=== PATIENT | female | born 1975 | race Caucasian/White ===

== ENCOUNTER → 2016-12-05 | Outpatient (CLI) | payer OTHER ==
[2016-09-22 13:50] VITALS: BP 112/51
[~2016-12-05] MED LIST: ALBU8.5H6 INH; AZIT500T PO; BENZ100C PO; BUTA1CAP29 PO; DESV50TA PO; EPIN0.3A8 IJ; FLUT9.9S NS; LORA2TAB PO; NICO1PAT TP; OXCA300T PO; TOPI50TA4 PO; VARE1TAB5 PO; ZALE10CA16 PO
--- NOTE | 2016-12-05 09:04 | RAD ---
INDICATION: CHRONIC SINUSITIS X 2 MONTHS COMPARISON: 11/28/2014 TECHNIQUE: Axial CT images were obtained through the facial region without contrast. FINDINGS: Lucency in the left mandibular condyle. Zygomatic arches are intact. Mastoid air cells are well aerated. Maxillary sinuses well aerated. Sphenoid sinus and ethmoid air cells well aerated. Frontal sinus well aerated. There is nasal septal bowing to the right. IMPRESSION: No opacification of the sinuses to suggest sinusitis. Nasal septal bowing to the right. There is a linear lucency at the left mandibular condyle. This is likely secondary to artifact or a vascular channel unless the patient has had trauma to the region to suggest nondisplaced fracture. PQRS Compliance Statement: One or more of the following individualized dose reduction techniques were utilized for this examination: 1. Automated exposure control 2. Adjustment of the mA and/or kV according to patient size 3. Use of iterative reconstruction technique
== END | disposition home or self-care (01) ==
LOC: CT 07:41
PROVIDERS: ATTEND Otolaryngology
DX: J32.9 Chronic sinusitis, unspecified (principal)
CPT/HCPCS: 70486

== ENCOUNTER 2019-06-18 09:08 | Emergency (ER) | payer OTHER ==
[~2019-06-18] VITALS: Ht 165.1 cm; Wt 182.8 kg
[~2019-06-18 09:08] MED LIST changes: -OXCA300T PO; +OXCA300T19 PO; -TOPI50TA4 PO; +TOPI50TA8 PO; -ZALE10CA16 PO; +ZALE10CA44 PO
[2019-06-18 10:01] LABS: BASO # 0.1 x10^3/uL (0.0-0.2); BASO % 1 % (0-3); EOS # 0.2 x10^3/uL (0.0-0.7); EOS % 3 % (0-3); HEMATOCRIT 34.4 % (36.0-47.0); HEMOGLOBIN 11.4 g/dL (12.0-15.5); LYMPH # 1.9 x10^3/uL (1.0-4.8); LYMPH % 23 % (24-48); MEAN CORPUSCULAR HEMOGLOBIN 29 pg (25-35); MEAN CORPUSCULAR HGB CONC 33 g/dL (31-37); MEAN CORPUSCULAR VOLUME 87 fL (79-100); MONO # 0.6 x10^3/uL (0.0-1.1); MONO % 8 % (0-9); NEUT # 5.4 x10^3/uL (1.8-7.7); NEUT % 66 % (31-73); PLATELET COUNT 282 x10^3/uL (140-400); RED BLOOD COUNT 3.93 x10^6/uL (3.50-5.40); RED CELL DISTRIBUTION WIDTH 13.6 % (11.5-14.5); WHITE BLOOD COUNT 8.3 x10^3/uL (4.0-11.0)
--- NOTE | 2019-06-18 10:05 | EKG ---
[facility] [address] [place] [address] Test Date: 2019-06-18 Test Time: 09:16:18 Pat Name: JUDIE AGUIRRE Department: Room: Gender: F [employer] Machine Operator: : 1975 Requested By: SUSANA MORRIS Order Number: [id number] Reading MD: Nick Bradley MD Measurements Intervals [place] Rate: 93 P: 45 MI: 166 QRS: 17 QRSD: 86 T: 12 QT: 364 QTc: 455 Interpretive Statements SINUS RHYTHM Electronically Signed On 06-18-2019 18:51:50 CDT by Nick Bradley MD
[2019-06-18 10:09] LABS: PROTHROMBIN TIME PATIENT 12.3 SEC (11.7-14.0)
[2019-06-18] MEDS ORDERED: fentaNYL PF VIAL 100 MCG/2 ML VIAL IV ONE (10:15)
--- NOTE | 2019-06-18 10:15 | RAD ---
PORTABLE CHEST 1V History: Chest pain Comparison: April 10, 2015 Findings: Low lung volumes with patchy central and bibasilar opacities. Portable technique accentuates cardiac size. No definite pleural effusion. Impression: 1. Low lung volumes with patchy central and bibasilar opacities, may represent atelectasis or consolidations. PA and lateral view the chest can better assess if clinically indicated. Electronically signed by: Alistair Naylro DO (06/18/2019 10:12 AM) [facility]
[2019-06-18] MEDS ORDERED: HYDROmorphone 2 MG/ML VIAL IV ONE (11:15)
[2019-06-18 11:21] LABS: CALCIUM 9.2 mg/dL (8.5-10.1); CREATININE 0.7 mg/dL (0.6-1.0); GFR 91.8; POTASSIUM 4.2 mmol/L (3.5-5.1)
[2019-06-18 11:27] LABS: ALBUMIN 3.5 g/dL (3.4-5.0); ALBUMIN/GLOBULIN RATIO 0.9 (1.0-1.7); MAGNESIUM 1.9 mg/dL (1.8-2.4); TOTAL BILIRUBIN 0.3 mg/dL (0.2-1.0); TOTAL PROTEIN 7.3 g/dL (6.4-8.2)
--- NOTE | 2019-06-18 11:30 | PHYS DOC ---
Past Medical History Past Medical History: Anxiety, Depression, Hypertension, Stroke Past Surgical History: Appendectomy, Cholecystectomy, , Hysterectomy, Other Additional Past Surgical Histo: Lap Band Alcohol Use: None Drug Use: None Adult General Chief Complaint Chief Complaint: WEAKNESS/GENERALIZED HPI HPI Patient is a 43 year old female who presents by EMS with complaining of weakn ess. Patient states she has had history of migraine headache and for the last several days has generalized headache that did not get better with pain medication. Patient complaining of right upper extremity weakness and numbness since yesterday with right eye blurred vision did not get better today. Patient also complaining of chest pain in substernal area and bilateral chest that started today as an intermittent pain. Patient has multiple complaint any states she started a new job today. Review of Systems Review of Systems Constitutional: Denies fever or chills [] Eyes: Denies redness, or eye pain, reports change of vision [] HENT: Denies nasal congestion or sore throat [] Respiratory: Denies cough or shortness of breath [] Cardiovascular: No additional information not addressed in HPI [] GI: Denies abdominal pain, nausea, vomiting, bloody stools or diarrhea [] : Denies dysuria or hematuria [] Musculoskeletal: Denies back pain or joint pain [] Integument: Denies rash or skin lesions [] Neurologic: Ports headache, focal weakness, sensory loss Endocrine: Denies polyuria or polydipsia [] All other systems were reviewed and found to be within normal limits, except as documented in this note. Current Medications Current Medications Current Medications Medications (Trade) Dose Ordered Sig/[facility] Start Time Stop Time Status Last Admin Dose Admin Fentanyl Citrate (Fentanyl 2ml Vial) 50 mcg 1X ONCE 06/18/19 10:15 06/18/19 10:16 DC 06/18/19 09:50 50 MCG Hydromorphone HCl (Dilaudid) 1 mg 1X ONCE 06/18/19 11:15 06/18/19 11:16 DC 06/18/19 10:58 1 MG Allergies Allergies Allergies Coded Allergies Type Severity Reaction Last Updated Verified buckwheat Allergy Severe Anaphylaxis 09/22/16 No Physical Exam Physical Exam Constitutional: Well nourished, mild distress, non-toxic appearance, morbidly obese. [] HENT: Normocephalic, atraumatic. Eyes: PERRLA, EOMI, conjunctiva normal, no discharge. [] Neck: Normal range of motion, no tenderness, supple, no stridor. [] Cardiovascular:Heart rate regular rhythm, no murmur [] Lungs & Thorax: Bilateral breath sounds clear to auscultation [] Abdomen: Bowel sounds normal, soft, no tenderness, no masses, no pulsatile masses. [] Skin: Warm, dry, no erythema, no rash. [] Back: No tenderness, no CVA tenderness. [] Extremities: No tenderness, no cyanosis, no clubbing, Neurologic: Alert and oriented X 3, NIH-7, SGOT this number was not accurate number and patient intentionally refuses to move her extremity Psychologic: anxious Current Patient Data Vital Signs Vital Signs Date Time Temp Pulse Resp B/P (MAP) Pulse Ox O2 Delivery O2 Flow Rate FiO2 06/18/19 12:29 16 95 Room Air 06/18/19 12:10 83 06/18/19 09:12 98.3 136/74 (94) 98.3 Lab Values Laboratory Tests Test 06/18/19 09:40 06/18/19 11:00 White Blood Count 8.3 x10^3/uL (4.0-11.0) Red Blood Count 3.93 x10^6/uL (3.50-5.40) Hemoglobin 11.4 g/dL (12.0-15.5) L Hematocrit 34.4 % (36.0-47.0) L Mean Corpuscular Volume 87 fL (79-100) Mean Corpuscular Hemoglobin 29 pg (25-35) Mean Corpuscular Hemoglobin Concent 33 g/dL (31-37) Red Cell Distribution Width 13.6 % (11.5-14.5) Platelet Count 282 x10^3/uL (140-400) Neutrophils (%) (Auto) 66 % (31-73) Lymphocytes (%) (Auto) 23 % (24-48) L Monocytes (%) (Auto) 8 % (0-9) Eosinophils (%) (Auto) 3 % (0-3) Basophils (%) (Auto) 1 % (0-3) Neutrophils # (Auto) 5.4 x10^3/uL (1.8-7.7) Lymphocytes # (Auto) 1.9 x10^3/uL (1.0-4.8) Monocytes # (Auto) 0.6 x10^3/uL (0.0-1.1) Eosinophils # (Auto) 0.2 x10^3/uL (0.0-0.7) Basophils # (Auto) 0.1 x10^3/uL (0.0-0.2) Prothrombin Time 12.3 SEC (11.7-14.0) Prothrombin Time INR 0.9 (0.8-1.1) Sodium Level 139 mmol/L (136-145) Potassium Level 4.2 mmol/L (3.5-5.1) Chloride Level 102 mmol/L (98-107) Carbon Dioxide Level 28 mmol/L (21-32) Anion Gap 9 (6-14) Blood Urea Nitrogen 9 mg/dL (7-20) Creatinine 0.7 mg/dL (0.6-1.0) Estimated GFR (Cockcroft-Gault) 91.8 BUN/Creatinine Ratio 13 (6-20) Glucose Level 92 mg/dL (70-99) Calcium Level 9.2 mg/dL (8.5-10.1) Magnesium Level 1.9 mg/dL (1.8-2.4) Total Bilirubin 0.3 mg/dL (0.2-1.0) Aspartate Amino Transferase (AST) 24 U/L (15-37) Alanine Aminotransferase (ALT) 45 U/L (14-59) Alkaline Phosphatase 110 U/L (46-116) Creatine Kinase 41 U/L (26-192) Troponin I Quantitative < 0.017 ng/mL (0.000-0.055) BX-Nrp-Q-Type Natriuretic Peptide 29 pg/mL (0-124) Total Protein 7.3 g/dL (6.4-8.2) Albumin 3.5 g/dL (3.4-5.0) Albumin/Globulin Ratio 0.9 (1.0-1.7) L Lipase 72 U/L (73-393) L Laboratory Tests 06/18/19 09:40 Laboratory Tests 06/18/19 11:00 EKG EKG EKG interpreted by me. EKG at 0 916 showed normal sinus rhythm at rate of 92, normal AR and QT intervals, no acute ST-T wave abnormalities. Radiology/Procedures Radiology/Procedures [][facility] [address] [facility] [place] [address] IMAGING REPORT Signed PATIENT: JUDIE AGUIRRE ACCOUNT: [id number] : 1975 LOCATION: ER AGE: 43 SEX: F EXAM STATUS: REG ER ORD. PHYSICIAN: SUSANA MORRIS MD REASON: chest pain PROCEDURE: PORTABLE CHEST 1V PORTABLE CHEST 1V History: Chest pain Comparison: April 10, 2015 Findings: Low lung volumes with patchy central and bibasilar opacities. Portable technique accentuates cardiac size. No definite pleural effusion. Impression: 1. Low lung volumes with patchy central and bibasilar opacities, may represent atelectasis or consolidations. PA and lateral view the chest can better assess if clinically indicated. Electronically signed by: Alistair Naylor DO (06/18/2019 10:12 AM) [facility] DICTATED and SIGNED BY: ALISTAIR NAYLOR DO DATE: 06/18/19 1012 [facility] [address] [place] [address] IMAGING REPORT Signed PATIENT: JUDIE AGUIRRE ACCOUNT: [id number] : 1975 LOCATION: ER AGE: 43 SEX: F EXAM STATUS: REG ER ORD. PHYSICIAN: SUSANA MORRIS MD REASON: chest pain and arm weakness PROCEDURE: CT HEAD WO CONTRAST EXAM: Head CT without contrast. HISTORY: Chest pain. Arm weakness. TECHNIQUE: Computed tomographic images of the head were obtained without contrast. COMPARISON: MRI dated 11/25/2014. FINDINGS: There is no acute or subacute extra-axial or intraparenchymal hemorrhage. There is no mass effect or midline shift. There is no hydrocephalus. The garcia-white matter differentiation pattern is intact. There is a stable prominent sella, better characterized on the prior MRI. The visualized portions of the orbits, paranasal sinuses and mastoid air cells are unremarkable. No suspicious calvarial lesion is seen. IMPRESSION: No acute intracranial findings. Electronically signed by: Patricia Moran MD (06/18/2019 11:26 AM) [facility] DICTATED and SIGNED BY: PATRICIA MORAN MD DATE: 06/18/19 1126 Course & Med Decision Making Course & Med Decision Making Pertinent Labs and Imaging studies reviewed. (See chart for details) Evaluation of patient in ER showed 43-year-old male patient with multiple medical problems including weakness of extremity and vision loss yesterday. Patient had NIH-7 with intentional weakness of extremity and wasn't a candidate for TPA. Patient acting unresponsive when she was in CT that improved with a sternal rub. Patient had unremarkable CT and labs and felt better with pain medication and was advised to follow with her primary care physician. Dragon Disclaimer Dragon Disclaimer This electronic medical record was generated, in whole or in part, using a voice recognition dictation system. Departure Departure Impression: Primary Impression: Migraine headache with aura Additional Impressions: Anemia Anxiety about health Morbid obesity with BMI of 60.0-69.9, adult Unresponsive episode Disposition: HOME, SELF-CARE (at 1200) Condition: IMPROVED Referrals: LYNN AUGUSTINE MD (PCP) Patient Instructions: Migraine Headache Additional Instructions: Continue home medication Follow-up with your primary care physician in 2 days Return to ER if not getting better Scripts Butalbital/Aspirin/Caffeine (FIORINAL 50-325-40 MG CAPSULE) 1 Each Capsule 1 EACH PO QID, #10 CAP Prov: SUSANA MORRIS MD 06/18/19 NIHSS Stroke Scale NIH Stroke Scale: NIH Stroke Scale Response (Comments) Value Level of Consciousness: 0 Alert/Responsive 0 LOC Questions: 0 Answers both correctly 0 LOC Commands: 0 Performs both tasks 0 Best Gaze: 0 Normal 0 Visual: 1 Partial hemianopia 1 Facial Palsy: 0 Normal, symmetrical 0 Motor - Left Arm 0 No drift 0 Motor - Right Arm 1 Drifts but can hold 1 Motor - Left Leg 0 No drift 0 Motor: Right Leg 2 Some effort 2 Limb Ataxia: 1 One limb 1 Sensory: 1 Mid to moderate loss 1 Best Language: 0 Normal 0 Dysathria: 0 Normal 0 Extinction and Inattention: 1 One sensory modality 1 Total 7 Critical Care Time Critical care time was 80 minutes exclusive of procedures. Problem Qualifiers Primary Impression: Migraine headache with aura Status migrainosus presence: without status migrainosus Intractability: not intractable Qualified Codes: G43.109 - Migraine with aura, not intractable, without status migrainosus Additional Impressions: Anemia Anemia type: unspecified type Qualified Codes: D64.9 - Anemia, unspecified SUSANA MORRIS MD Jun 18, 2019 11:29
[2019-06-18] MEDS ORDERED: BUTA1CAP31 PO (12:06)
[2019-06-18 12:10] VITALS: BP 128/68
== END 2019-06-18 12:14 | disposition home or self-care (01) ==
LOC: ER 09:08
DX: G43.109 Migraine with aura, not intractable, without status migrainosus (principal); D64.9 Anemia, unspecified; R53.1 Weakness; F41.9 Anxiety disorder, unspecified; F32.9 Major depressive disorder, single episode, unspecified; I10 Essential (primary) hypertension; Z86.73 Personal history of transient ischemic attack (TIA), and cerebral infarction without residual deficits; Z90.89 Acquired absence of other organs; Z90.49 Acquired absence of other specified parts of digestive tract; Z90.710 Acquired absence of both cervix and uterus; Z98.890 Other specified postprocedural states; Z91.018 Allergy to other foods
CPT/HCPCS: 36415; 70450; 71045; 80053; 82550; 83690; 83735; 83880; 84484; 85025; 85610; 93005; 96374; 96375; 99285; J1170; J3010